=== PATIENT | male | born 1970 | race Caucasian/White ===

== ENCOUNTER 2017-09-11 03:50 | Inpatient (IN) | payer OTHER, MEDICAID ==
[~2017-09-11] VITALS: Ht 177.8 cm; Wt 90.7 kg
--- NOTE | 2017-09-11 04:09 | NUR ---
PT RECEIVED IN NO ACUTE DISTRESS. PT LEFT FACILITY AFTER SEEING WITH MEDICATIONS AND INSTRUCTIONS. CAME BACK D/T POSITIVE FOR DVT FROM VENOUS DOOPPLER. NO SOB NOTED WELL PAIN. A/O X4 ABLE TO MAKE NEEDS KNOWN. WILL CONTINUE TO MONITOR FOR ANY CHANGES
[2017-09-11] MEDS ORDERED: ENOXAPARIN SODIUM 80 MG/0.8 ML DISP.SYRIN SQ ONE (04:13)
--- NOTE | 2017-09-11 04:13 | NUR ---
LAC 20G STARTED
[2017-09-11 04:25] LABS: BASOPHILS % (AUTO) 0.4 % (0.0-2.0); EOSINOPHILS # (AUTO) 0.4 /CMM (0.0-0.7); EOSINOPHILS % (AUTO) 3.7 % (0.0-6.0); HEMATOCRIT 47 % (39-51); HEMOGLOBIN 15.9 g/dL (13.5-17.5); LYMPHOCYTES # (AUTO) 1.9 /CMM (0.8-4.8); LYMPHOCYTES % (AUTO) 18.9 % (20.0-44.0); MEAN CORPUSCULAR HEMOGLOBIN 31 PG (26.0-33.0); MEAN CORPUSCULAR HGB CONC 34 g/dl (31.0-36.0); MEAN CORPUSCULAR VOLUME 92 fL (80-96); MONOCYTES # (AUTO) 0.9 /CMM (0.1-1.30); MONOCYTES % (AUTO) 8.8 % (2.0-12.0); NEUTROPHILS # (AUTO) 6.9 /CMM (1.8-8.9); NEUTROPHILS % (AUTO) 68.2 % (43.0-81.0); PLATELET COUNT (AUTO) 217 /CMM (150-450); RDW COEFFICIENT OF VARIATION 13.8 (11.5-15.0); RED BLOOD CELL COUNT(AUTO) 5.09 MIL/uL (4.5-6.0); WHITE BLOOD COUNT (AUTO) 10.1 K/uL (4.3-11.0)
[2017-09-11] MEDS ORDERED: ENOXAPARIN SODIUM 60 MG/0.6 ML DISP.SYRIN SQ ONE (04:30)
[2017-09-11 04:36] LABS: CALCIUM, SERUM 8.4 mg/dL (8.5-10.1); CREATININE 0.9 mg/dL (0.6-1.3); POTASSIUM 3.8 mmol/L (3.5-5.1)
[2017-09-11 04:42] LABS: ALBUMIN 3.2 g/dL (3.4-5.0); BILIRUBIN,DIRECT 0.1 mg/dL (0.0-0.2); BILIRUBIN,TOTAL 0.4 mg/dL (0.2-1.0); TOTAL PROTEIN, SERUM 6.5 g/dL (6.4-8.2)
[2017-09-11 04:50] LABS: INR 0.97 (0.87-1.13); PROTHROMBIN TIME 10.1 SECS (9.5-12.7)
[2017-09-11 05:21] VITALS: BP 121/86
--- NOTE | 2017-09-11 05:22 | NUR ---
PATIENT TRANSFERRED TO FLOOR 2
[2017-09-11] MEDS ORDERED: MORPHINE SULFATE INJ 2 MG/ML DISP.SYRIN ONE (05:24)
[2017-09-11] MEDS: MORPHINE SULFATE INJ 2 MG/ML DISP.SYRIN IV PRN ×6 (05:29→23:06)
[2017-09-11] MEDS ORDERED: ZOLPIDEM TARTRATE 5 MG TABLET PO PRN (06:00)
[2017-09-11] MEDS ORDERED: ACETAMINOPHEN 325 MG TABLET PO PRN (06:00)
[2017-09-11 06:27] VITALS: BP 121/86
--- NOTE | 2017-09-11 06:56 | NUR ---
RN NOTES PATIENT IN BED, ALERT AND AWAKE, NO RESPIRATORY DISTRESS, STILL COMPLAINING OF PAIN TO RIGHT LOWER STUMP AFTER MORPHINE, EXPLAINED TO PATIENT SCHEDULE OF MORPHINE, PT VERBALIZED UNDERSTANDING. NEEDS ATTENDED, CALL LIGHT WITHIN REACH.
--- NOTE | 2017-09-11 07:20 | NUR ---
RN NOTES PT IS LAYING DOWN IN BED, RESTING COMFORTABLY. PT ON RA, RESPIRATIONS ARE EVEN AND UNLABORED. IV ON LAC INTACT AND SL. NO SIGNS OF DISTRESS NOTED. SAFETY MEASURES ARE IN PLACE, CALL LIGHT IS IN REACH. WILL CONTINUE TO MONITOR.
[2017-09-11 08:00] VITALS: BP 112/72
[2017-09-11] MEDS: PANTOPRAZOLE 40 MG TABLET.DR PO SCH (08:31)
[2017-09-11] MEDS ORDERED: ENOXAPARIN SODIUM 80 MG/0.8 ML DISP.SYRIN SQ SCH (09:00)
[2017-09-11] MEDS ORDERED: ALPR2TAB7 PO (09:19)
[2017-09-11] MEDS: HYDROCODONE/APAP 5/325MG 1 EACH TABLET PO PRN ×3 (12:42→20:52)
[2017-09-11 16:00] VITALS: BP 136/99
[2017-09-11] MEDS: ENOXAPARIN SODIUM 100 MG/ML DISP.SYRIN SQ SCH (16:36)
--- NOTE | 2017-09-11 18:57 | NUR ---
RN NOTES PT IS SITTING UP IN BED, RESTING COMFORTABLY. PT ON RA, RESPIRATIONS ARE EVEN AND UNLABORED. IV ON LAC INTACT AND SL. ALL MEDS WERE GIVEN ORDERED, PT NEEDS MET. PT DENIES ANY PAIN AT THIS TIME AND SHOWS NO SIGNS OF DISTRESS. SAFETY MEASURES ARE IN PLACE, CALL LIGHT IS IN REACH. WILL ENDORSE TO PELT SHEARER RN FOR CONTINUITY OF CARE.
[2017-09-11 20:00] VITALS: BP 135/90
--- NOTE | 2017-09-11 20:00 | NUR ---
RN NOTES PATIENT UP IN BED, TALKING ON THE PHONE, NO SOB, NOT IN APPARENT DISTRESS, RECEIVED PAIN MEDICATION DURING AM SHIFT, LEFT AC SALINE LOCK IS FLUSHED, DRESSING INTACT. PER PATIENT, WILL REQUEST FOR PAIN MEDICATION NEEDED, MOTHER AT THE BEDSIDE, CALL LIGHT WITHIN REACH.
--- NOTE | 2017-09-11 23:52 | NUR ---
RN NOTES REMOVED IV LINE TO LEFT AC, STARTED NEW ONE TO RIGHT UPPER ARM, PROCEDURE TOLERATED WELL.
[2017-09-12] MEDS: HYDROCODONE/APAP 5/325MG 1 EACH TABLET PO PRN ×5 (00:58→22:18)
[2017-09-12] MEDS: MORPHINE SULFATE INJ 2 MG/ML DISP.SYRIN IV PRN ×6 (02:06→20:04)
[2017-09-12] MEDS: ENOXAPARIN SODIUM 100 MG/ML DISP.SYRIN SQ SCH ×2 (05:37→17:04)
--- NOTE | 2017-09-12 06:30 | NUR ---
RN NOTES PATIENT IN BED, RESTING COMFORTABLY, AROUSEABLE BY VOICE AND TOUCH. NO DISTRESS, NO RESPIRATORY DISTRESS, PROVIDED PAIN MEDICATION ROUND THE CLOCK PRN. RIGHT UPPER ARM SALINE LOCK IS PATENT AND SECURED WITH DRESSING. NEEDS ATTENDED, CALL LIGHT WITHIN REACH
[2017-09-12 06:56] LABS: BASOPHILS # (AUTO) 0.1 /CMM (0.0-0.2); BASOPHILS % (AUTO) 0.7 % (0.0-2.0); EOSINOPHILS # (AUTO) 0.4 /CMM (0.0-0.7); HEMATOCRIT 48 % (39-51); HEMOGLOBIN 16.3 g/dL (13.5-17.5); LYMPHOCYTES % (AUTO) 22.8 % (20.0-44.0); MEAN CORPUSCULAR HEMOGLOBIN 32 PG (26.0-33.0); MEAN CORPUSCULAR HGB CONC 34 g/dl (31.0-36.0); MEAN CORPUSCULAR VOLUME 93 fL (80-96); MONOCYTES # (AUTO) 0.9 /CMM (0.1-1.30); MONOCYTES % (AUTO) 10.2 % (2.0-12.0); NEUTROPHILS # (AUTO) 5.4 /CMM (1.8-8.9); NEUTROPHILS % (AUTO) 61.3 % (43.0-81.0); PLATELET COUNT (AUTO) 214 /CMM (150-450); RDW COEFFICIENT OF VARIATION 13.6 (11.5-15.0); RED BLOOD CELL COUNT(AUTO) 5.16 MIL/uL (4.5-6.0); WHITE BLOOD COUNT (AUTO) 8.9 K/uL (4.3-11.0)
[2017-09-12 07:10] LABS: CALCIUM, SERUM 8.7 mg/dL (8.5-10.1); MAGNESIUM 2.2 mg/dL (1.8-2.4); POTASSIUM 3.7 mmol/L (3.5-5.1)
[2017-09-12 08:00] VITALS: BP 142/70
--- NOTE | 2017-09-12 08:13 | NUR ---
MS RN: INITIAL NOTE RECEIVED PT A/0X4. PAIN CONTROLLED WITH PAIN MEDICATIONS. NO DISTRESS NOTED. NO SOB NOTED. UES URINAL. AMBULATORY WITH CRUTCHES. R LOWER STUMP REDNESS. ON REGULAR DIET. R ARM #22 SL. SITE CLEAR AND PATENT. NO IV FLUIDS RUNNING. RESTING COMFORTABLY IN BED. CALL LIGHT WITHIN REACH.
[2017-09-12] MEDS: PANTOPRAZOLE 40 MG TABLET.DR PO SCH (08:19)
[2017-09-12 16:00] VITALS: BP 131/76
--- NOTE | 2017-09-12 18:50 | NUR ---
MS RN: CLOSING NOTE PT A/OX4. ON ROOM AIR SATING AT 97%. TOOK ALL MEDICATIONS ON TIME. NO ADVERSE REACTIONS NOTED. R STUMP EDEMA NOTED. NO INCREASE IN EDEMA. PAIN CONTROLLED WITH PAIN MEDICATIONS. AMBULATES WITH CRUTCHES. USES URINAL. ON REGULAR DIET. RESTING COMFORTABLY IN BED. CALL LIGHT WITHIN REACH.
--- NOTE | 2017-09-12 19:30 | NUR ---
MS RN: INITIAL NOTE RECEIVED PT A/0X4. PAIN CONTROLLED WITH PAIN MEDICATIONS. NO DISTRESS NOTED. NO SOB NOTED. USES URINAL. AMBULATORY WITH CRUTCHES. R LOWER STUMP REDNESS. ON REGULAR DIET. R ARM #22 SL. SITE CLEAR AND PATENT. NO IV FLUIDS RUNNING. RESTING COMFORTABLY IN BED. CALL LIGHT WITHIN REACH.
[2017-09-12 20:00] VITALS: BP 140/74
[2017-09-12 22:00] VITALS: BP 140/74
[2017-09-12] MEDS: ONDANSETRON HCL/PF 4 MG/2 ML VIAL IVP PRN (22:17)
[2017-09-13] MEDS: CEPHALEXIN MONOHYDRATE 250 MG CAPSULE PO SCH ×3 (00:01→11:56)
[2017-09-13] MEDS: MORPHINE SULFATE INJ 2 MG/ML DISP.SYRIN IV PRN ×8 (00:01→23:13)
[2017-09-13] MEDS: MAGNESIUM HYDROXIDE 30 ML UDC PO PRN ×3 (00:01→23:13)
[2017-09-13] MEDS: HYDROCODONE/APAP 5/325MG 1 EACH TABLET PO PRN ×4 (02:07→18:10)
[2017-09-13] MEDS: ENOXAPARIN SODIUM 100 MG/ML DISP.SYRIN SQ SCH ×2 (06:11→16:34)
[2017-09-13] MEDS: PANTOPRAZOLE 40 MG TABLET.DR PO SCH (07:46)
[2017-09-13 07:51] LABS: BASOPHILS % (AUTO) 0.5 % (0.0-2.0); EOSINOPHILS # (AUTO) 0.2 /CMM (0.0-0.7); EOSINOPHILS % (AUTO) 2.8 % (0.0-6.0); HEMATOCRIT 49 % (39-51); HEMOGLOBIN 16.6 g/dL (13.5-17.5); LYMPHOCYTES # (AUTO) 1.4 /CMM (0.8-4.8); LYMPHOCYTES % (AUTO) 17.8 % (20.0-44.0); MEAN CORPUSCULAR HEMOGLOBIN 32 PG (26.0-33.0); MEAN CORPUSCULAR HGB CONC 34 g/dl (31.0-36.0); MEAN CORPUSCULAR VOLUME 92 fL (80-96); MONOCYTES # (AUTO) 0.6 /CMM (0.1-1.30); MONOCYTES % (AUTO) 8.2 % (2.0-12.0); NEUTROPHILS # (AUTO) 5.4 /CMM (1.8-8.9); NEUTROPHILS % (AUTO) 70.7 % (43.0-81.0); PLATELET COUNT (AUTO) 249 /CMM (150-450); RDW COEFFICIENT OF VARIATION 13.5 (11.5-15.0); RED BLOOD CELL COUNT(AUTO) 5.27 MIL/uL (4.5-6.0); WHITE BLOOD COUNT (AUTO) 7.7 K/uL (4.3-11.0)
[2017-09-13 08:00] VITALS: BP 102/60
[2017-09-13 08:05] LABS: CALCIUM, SERUM 8.7 mg/dL (8.5-10.1); CREATININE 0.9 mg/dL (0.6-1.3); POTASSIUM 4.2 mmol/L (3.5-5.1)
--- NOTE | 2017-09-13 08:30 | NUR ---
RN OPENING NOTES RECEIVED PT. A/OX4. PT IS STABLE AND RESTING IN BED, AT BEDSIDE. NO S/S OF RESPIRATORY DISTRESS OR SOB. PT HAS C/O PAIN 7/10 ON RIGHT LOWER EXTREMITY/AMPUTATION SITE, WILL ADDRESS PHARMACOLOGICALLY. SAFETY MEASURES IN PLACE, CALL LIGHT WITHIN REACH. WILL CONTINUE TO MONITOR.
[2017-09-13] MEDS: ONDANSETRON HCL/PF 4 MG/2 ML VIAL IVP PRN (13:12)
--- NOTE | 2017-09-13 13:22 | NUR ---
MRI APPROVED,SPOKE TO NURSE JEANETTE.
[2017-09-13] MEDS ORDERED: CEPHALEXIN MONOHYDRATE 500 MG CAPSULE PO SCH (14:06)
[2017-09-13 16:00] VITALS: BP 125/70
[2017-09-13] MEDS: CEPHALEXIN MONOHYDRATE 500 MG CAPSULE PO SCH ×2 (18:10→23:13)
--- NOTE | 2017-09-13 19:19 | NUR ---
RN CLOSING NOTES PT IN BED RESTING. NO S/S OF RESPIRATORY DISTRESS OR SOB. NO C/O PAIN AT THIS TIME. PT TO HAVE IV INSERTED. MRI RESULTS PENDING. ALL PT NEEDS ANTICIPATED AND MET. SAFETY MEASURES IN PLACE, CALL LIGHT WITHIN REACH. WILL ENDORSE TO ADOBE ARCHITECT FOR CORDELIA.
--- NOTE | 2017-09-13 19:30 | NUR ---
MS RN: INITIAL NOTE RECEIVED PT A/0X4. PAIN CONTROLLED WITH PAIN MEDICATIONS. NO DISTRESS NOTED. NO SOB NOTED. USES URINAL. AMBULATORY WITH CRUTCHES. R LOWER STUMP REDNESS. ON REGULAR DIET. RFA #22 SL. SITE CLEAR AND PATENT. NO IV FLUIDS RUNNING. RESTING COMFORTABLY IN BED. CALL LIGHT WITHIN REACH.
[2017-09-13 20:00] VITALS: BP 130/83
[2017-09-13 22:00] VITALS: BP 130/83
[2017-09-14] MEDS: HYDROCODONE/APAP 5/325MG 1 EACH TABLET PO PRN ×3 (01:33→14:54)
[2017-09-14] MEDS: MORPHINE SULFATE INJ 2 MG/ML DISP.SYRIN IV PRN ×5 (02:04→15:55)
[2017-09-14] MEDS: CEPHALEXIN MONOHYDRATE 500 MG CAPSULE PO SCH ×2 (05:42→12:44)
[2017-09-14] MEDS: ENOXAPARIN SODIUM 100 MG/ML DISP.SYRIN SQ SCH (05:49)
--- NOTE | 2017-09-14 06:22 | NUR ---
MS RN NOTE PATIENT STABLE. ALL NEEDS MET AND ATTENDED TO. WILL ENDORSE TO DAY SHIFT FOR CORDELIA.
[2017-09-14 06:46] LABS: BASOPHILS # (AUTO) 0.1 /CMM (0.0-0.2); BASOPHILS % (AUTO) 0.8 % (0.0-2.0); EOSINOPHILS # (AUTO) 0.4 /CMM (0.0-0.7); EOSINOPHILS % (AUTO) 4.8 % (0.0-6.0); HEMATOCRIT 47 % (39-51); HEMOGLOBIN 16.1 g/dL (13.5-17.5); LYMPHOCYTES # (AUTO) 1.9 /CMM (0.8-4.8); LYMPHOCYTES % (AUTO) 26.4 % (20.0-44.0); MEAN CORPUSCULAR HEMOGLOBIN 32 PG (26.0-33.0); MEAN CORPUSCULAR HGB CONC 34 g/dl (31.0-36.0); MEAN CORPUSCULAR VOLUME 92 fL (80-96); MONOCYTES # (AUTO) 0.7 /CMM (0.1-1.30); MONOCYTES % (AUTO) 9.3 % (2.0-12.0); NEUTROPHILS # (AUTO) 4.3 /CMM (1.8-8.9); NEUTROPHILS % (AUTO) 58.7 % (43.0-81.0); PLATELET COUNT (AUTO) 253 /CMM (150-450); RDW COEFFICIENT OF VARIATION 13.5 (11.5-15.0); RED BLOOD CELL COUNT(AUTO) 5.12 MIL/uL (4.5-6.0); WHITE BLOOD COUNT (AUTO) 7.3 K/uL (4.3-11.0)
[2017-09-14 06:56] LABS: CALCIUM, SERUM 8.8 mg/dL (8.5-10.1); CREATININE 0.8 mg/dL (0.6-1.3); MAGNESIUM 2.6 mg/dL (1.8-2.4); PHOSPHORUS 4.4 mg/dL (2.5-4.9); POTASSIUM 4.2 mmol/L (3.5-5.1)
[2017-09-14] MEDS: PANTOPRAZOLE 40 MG TABLET.DR PO SCH (07:46)
[2017-09-14 08:00] VITALS: BP 110/71
[2017-09-14] MEDS ORDERED: DICL100G16 TP (14:12)
[2017-09-14] MEDS ORDERED: CEPH-570 PO (14:12)
[2017-09-14] MEDS ORDERED: ALPR0.5T PO (14:12)
[2017-09-14] MEDS: ONDANSETRON HCL/PF 4 MG/2 ML VIAL IVP PRN (16:01)
[2017-09-14 16:22] VITALS: BP 147/80
[2017-09-14] MEDS: MAGNESIUM HYDROXIDE 30 ML UDC PO PRN (16:28)
--- NOTE | 2017-09-14 19:53 | NUR ---
DISCHARGE NOTE PT DISCHARGED HOME. NO S/S OF RESPIRATORY DISTRESS OR PAIN. PT GIVEN ALL DC PAPERWORK, VERBALIZE UNDERSTANDING. REFUSED PICTURES OF WOUNDS. ALL PAPERWORK COPIED AND PLACED IN CHART. IV ACCESS REMOVED. ID BAND REMOVED. PT LEFT IN PRIVATE CAR WITH FAMILY.
[2017-09-15 05:10] LABS: HOMOCYSTEINE, PLASMA 16.1 umol/L (0.0-15.0)
[2017-09-16 05:11] LABS: *ANTITHROMBIN III AG 61 % (72-124); *DILUTE PROTHROMBIN TIME (dPT) 56.7 sec (0.0-55.0); *INTERPRETATION Comment: (.); *PTT-LA 56.3 sec (0.0-51.9); *PTT-LA MIX 50.6 sec (0.0-48.9); *THROMBIN TIME 17.6 sec (0.0-23.0); *dPT CONFIRM RATIO 1.03 Ratio (0.00-1.40); *dRVVT 42.6 sec (0.0-47.0); PROTEIN C ACTIVITY 73 % (73-180); PROTEIN S ACTIVITY 113 % (63-140)
[2017-09-16 16:08] LABS: *CARD ANTI-CARDIOLIPIN AB IgG <9 GPL U/mL (0-14); *CARD ANTI-CARDIOLIPIN AB IgM <9 MPL U/mL (0-12)
[2017-09-20 18:09] LABS: *FACTOR II, DNA ANALYSIS Negative (.)
== END 2017-09-14 18:25 | disposition home or self-care (01) | DRG 300 ==
LOC: ER 03:53 → MEDSG2 04:43
PROVIDERS: ADMIT Internal Medicine; ATTEND Internal Medicine
DX: I82.411 Acute embolism and thrombosis of right femoral vein (principal); E44.1 Mild protein-calorie malnutrition; D68.69 Other thrombophilia; L03.115 Cellulitis of right lower limb; F32.9 Major depressive disorder, single episode, unspecified; F41.9 Anxiety disorder, unspecified; Z89.511 Acquired absence of right leg below knee; E78.5 Hyperlipidemia, unspecified; K21.9 Gastro-esophageal reflux disease without esophagitis; Z87.891 Personal history of nicotine dependence; Z86.718 Personal history of other venous thrombosis and embolism; Z86.14 Personal history of Methicillin resistant Staphylococcus aureus infection; T38.7X5A Adverse effect of androgens and anabolic congeners, initial encounter; Y92.009 Unspecified place in unspecified non-institutional (private) residence as the place of occurrence of the external cause; Z89.512 Acquired absence of left leg below knee; X31.XXXS Exposure to excessive natural cold, sequela
CPT/HCPCS: 36415; 73721-TC; 80048-TC; 80076-TC; 81240; 81241; 83090; 83735-TC; 84100-TC; 85025-TC; 85300; 85301; 85303; 85613; 85670; 85705; 85730-TC; 85732; 86147; 87081-TC; A4606; J1650; J2270; J2405; J3490; Z7610

== ENCOUNTER → 2017-09-11 | Emergency (ER) | payer MEDICARE, MEDICAID, OTHER ==
[~2017-09-11] VITALS: Ht 177.8 cm; Wt 81.6 kg
[~2017-09-11] MED LIST: ALPR0.5T PO; ALPR2TAB7 PO; CEPH-570 PO; DICL100G16 TP; HYDROCODONE/APAP 10/325MG 1 EA TABLET ONE; HYDROCODONE/APAP 10/325MG 1 EA TABLET PO ONE; ONDANSETRON 4 MG TAB.RAPDIS ONE; ONDANSETRON 4 MG TAB.RAPDIS SL ONE
--- NOTE | 2017-09-11 01:01 | NUR ---
PT IN ROOM LAYING ON BED. NO SOB NOTED WITH ADEQUATE CHEST RISE/FALL. 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 STATES IT USUALLY DOES NOT HURT BUT "I MIGHT HAVE TORE SOMETHING". PATIENT IS A/O X4 ABLE TO MAKE NEEDS KNOWN. SKIN WARM AND DRY. PULSE WNL. SEEN BY DOCTOR SORENSEN AT BEDSIDE.
--- NOTE | 2017-09-11 01:30 | NUR ---
DUE MEDICATIONS GIVEN ORDERED. AWAITING DUPLEX VENOUS
[2017-09-11 03:14] VITALS: BP 151/82
== END | disposition home or self-care (01) ==
LOC: ER 00:30
DX: T33.99XA Superficial frostbite of other sites, initial encounter (principal); M79.604 Pain in right leg; X31.XXXA Exposure to excessive natural cold, initial encounter; Y93.89 Activity, other specified; Y92.89 Other specified places as the place of occurrence of the external cause; Y99.8 Other external cause status
CPT/HCPCS: 73564; 93971; 99284; A4606 ×2; J7030; Q0162; Z7610